=== PATIENT | male | born 1980 | race Caucasian/White ===

== ENCOUNTER 2019-09-04 19:48 | Emergency (ER) | payer MEDICARE, MEDICAID | END 2019-09-04 20:30 | disposition home or self-care (01) | LOC: ERS 19:48 | DX: K42.9 Umbilical hernia without obstruction or gangrene (principal); F20.9 Schizophrenia, unspecified; F17.210 Nicotine dependence, cigarettes, uncomplicated; Z79.899 Other long term (current) drug therapy | CPT/HCPCS: 99283 ==